=== PATIENT | female | born 1985 | race Caucasian/White ===

== ENCOUNTER 2021-10-11 15:41 | Emergency (ER) | payer OTHER ==
[~2021-10-11] VITALS: Ht 157.5 cm; Wt 56.7 kg
== END 2021-10-11 20:28 | disposition home or self-care (01) ==
LOC: ER 15:41
DX: N93.9 Abnormal uterine and vaginal bleeding, unspecified (principal); R10.2 Pelvic and perineal pain; Z20.822 Contact with and (suspected) exposure to COVID-19